=== PATIENT | male | born 2000 | race Asian ===

== ENCOUNTER 2025-07-01 13:31 | Emergency (ER) | payer OTHER ==
[~2025-07-01] VITALS: Ht 175.3 cm; Wt 81.7 kg
[2025-07-01] MEDS ORDERED: FentaNYL Citrate 50 MCG/ML 2 ML Injection IV ONE (14:25)
[2025-07-01] MEDS ORDERED: Ketorolac Tromethamine 30mg Vial IV ONE (14:25)
[2025-07-01] MEDS ORDERED: NS 1,000 ML IV SCH (14:45)
[2025-07-01] MEDS ORDERED: Propofol 10mg/ml 20 ml Vial (Procedural) IV SCH (14:45)
[2025-07-01 16:15] VITALS: BP 133/63
[2025-07-01] MEDS ORDERED: IBUP400 PO (16:22)
[2025-07-01] MEDS ORDERED: ACET500 PO (16:22)
[2025-07-01 16:43] LABS: U Amphetamine Screen Not Detected; U Barbiturate Screen Not Detected; U Benzodiazapine Screen Not Detected; U Buprenorphine Screen Not Detected; U Cannabinoids Screen Not Detected; U Cocaine Screen Not Detected; U Methadone Screen Not Detected; U Methamphetamine Screen Not Detected; U Opiates Screen Not Detected; U Oxycodone Screen Not Detected; U Phencyclidine Screen Not Detected
== END 2025-07-01 16:50 | disposition home or self-care (01) ==
LOC: ER 13:31
PROVIDERS: Student in an Organized Health Care Education/Training Program
DX: S43.014A Anterior dislocation of right humerus, initial encounter (principal); S43.034A Inferior dislocation of right humerus, initial encounter; X50.0XXA Overexertion from strenuous movement or load, initial encounter
CPT/HCPCS: 23655; 73030; 96374; 96375; 99284-25; J1885; J2704; J3010; J7030